=== PATIENT | male | born 1995 | race Asian ===

== ENCOUNTER 2019-02-28 12:53 | Inpatient (IN) | payer OTHER ==
[~2019-02-28] VITALS: Ht 188 cm; Wt 75.8 kg
[2019-02-28] MEDS ORDERED: oxycodone (13:02)
[2019-02-28] MEDS ORDERED: NS 1,000 ML IV SCH (13:12)
[2019-02-28] MEDS ORDERED: NS 1,000 ML IV ONE (13:15)
[2019-02-28] MEDS ORDERED: ACETYLCYSTEINE 0 MG in D5W 1,000 ML IV ONE (13:30)
[2019-02-28] MEDS ORDERED: ACETYLCYSTEINE 0 MG in D5W 250 ML IV ONE (13:30)
[2019-02-28] MEDS ORDERED: ACETYLCYSTEINE 0 MG in D5W 500 ML IV ONE (13:30)
[2019-02-28] MEDS ORDERED: ACETYLCYSTEINE 6000 MG/30 ML *IV* VIAL (J0132) As Ordered ONE ×2 (13:37→13:42)
[2019-02-28 13:38] LABS: BASO % 0.3 % (0.0-1.0); HEMATOCRIT 45.4 % (42.0-52.0); HEMOGLOBIN 15.3 g/dl (13.5-17.5); LYMPH # 0.5 10^3/uL (1.5-6.5); LYMPH % 4.9 % (24.0-44.0); MEAN CORPUSCULAR HEMOGLOBIN 30.5 pg (27.0-33.0); MEAN CORPUSCULAR HGB CONC 33.7 g/dl (32.0-36.5); MEAN CORPUSCULAR VOLUME 90.6 fl (80.0-96.0); MONO # 0.3 10^3/uL (0.0-0.8); NEUTROPHILS # 9.6 10^3/uL (1.8-7.7); NEUTROPHILS % 91.5 % (36.0-66.0); PLATELET COUNT, AUTOMATED 169 10^3/uL (150-450); RED BLOOD COUNT 5.01 10^6/uL (4.30-6.10); WHITE BLOOD COUNT 10.5 10^3/uL (4.0-10.0)
[2019-02-28] MEDS ORDERED: ACETYLCYSTEINE 11,250 MG in D5W 250 ML IV ONE (13:45)
[2019-02-28 13:51] LABS: INR 0.96; PROTHROMBIN TIME 12.9 SECONDS (12.1-14.4)
[2019-02-28 13:56] LABS: AMPHETAMINES LEVEL URINE NEGATIVE (NEGATIVE); BARBITURATES URINE NEGATIVE (NEGATIVE); BENZODIAZEPINES URINE NEGATIVE (NEGATIVE); CANNABINOIDS URINE NEGATIVE (NEGATIVE); COCAINE METABOLITE URINE NEGATIVE (NEGATIVE); METHADONE URINE NEGATIVE (NEGATIVE); OPIATES URINE POSITIVE (NEGATIVE); PHENCYCLIDINE URINE NEGATIVE (NEGATIVE)
[2019-02-28 14:06] LABS: ACETAMINOPHEN LEVEL < 2.0 UG/ML (10.0-30.0); ALBUMIN 5.1 GM/DL (3.2-5.2); ALT/SGPT 60 U/L (12-78); BILIRUBIN,DIRECT 0.3 MG/DL (0.0-0.2); BILIRUBIN,TOTAL 1.1 MG/DL (0.2-1.0); BLOOD UREA NITROGEN 14 MG/DL (7-18); CARBON DIOXIDE LEVEL 28 MEQ/L (21-32); CHLORIDE LEVEL 105 MEQ/L (98-107); CPK CREATINE PHOSPHOKINASE 242 U/L (39-308); CREATININE FOR GFR 1.31 MG/DL (0.70-1.30); ETHYL ALCOHOL (ETHANOL) < 0.003 % (0.000-0.010); GLOMERULAR FILTRATION RATE > 60.0 (>60); GLUCOSE, FASTING 103 MG/DL (70-100); POTASSIUM SERUM 3.9 MEQ/L (3.5-5.1); SALICYLATE LEVEL < 1.7 MG/DL (5.0-30.0); SODIUM LEVEL 140 MEQ/L (136-145); TOTAL PROTEIN 8.6 GM/DL (6.4-8.2)
[2019-02-28] MEDS ORDERED: diphenhydrAMINE INJ 50MG/ML VIAL (J1200) As Ordered ONE (14:55)
[2019-02-28] MEDS ORDERED: diphenhydrAMINE INJ 50MG/ML VIAL (J1200) IV STA (14:58)
[2019-02-28] MEDS ORDERED: ACETYLCYSTEINE 3,750 MG in D5W 500 ML IV ONE (18:00)
[2019-02-28 18:01] LABS: ALBUMIN 4.2 GM/DL (3.2-5.2); BILIRUBIN,DIRECT 0.3 MG/DL (0.0-0.2); TOTAL PROTEIN 6.6 GM/DL (6.4-8.2)
[2019-02-28] MEDS ORDERED: MAALOX 30 ML SUSP *UDC PO PRN (19:30)
[2019-02-28] MEDS ORDERED: hydrOXYzine 50 MG TAB PO PRN (19:30)
[2019-02-28] MEDS ORDERED: ACETAMINOPHEN TAB 650MG DOSE (2X325MG) PO PRN (19:30)
[2019-02-28] MEDS ORDERED: traZODone 50 MG TAB PO PRN (19:30)
[2019-02-28] MEDS ORDERED: MOM 30ML SUSPENSION UDC PO PRN (19:30)
[2019-02-28 23:34] VITALS: BP 132/69
[2019-03-01 06:57] VITALS: BP 113/66
--- NOTE | 2019-03-01 11:33 | ECGEPIP ---
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
--- NOTE | 2019-03-01 13:30 | HPEPDOC ---
General Date of Admission February 28, 2019 at 19:27 Attending Physician: HYACINTH WIHPPLE MD Chief Complaint The patient is a 24-year-old male admitted with a reason for visit of Unspecified Depressive Disorder. History of Present Illness Patient is a 24-year-old male, who presented to the emergency room after suicide attempt with 30 oxycodone pills. His past medical history is significant only for nicotine use. The oxycodone pills were left over from teeth surgery patient had a year ago. Reason for suicide attempt was due to his wanting a divorce. On assessment. He denies any chest pain, abdominal pain, shortness of breath, nausea. Home Medications No Active Prescriptions or Reported Meds Allergies Coded Allergies: acetylcysteine (Verified Allergy, Intermediate, Hives, 02/28/19) Past Medical History Medical History Nicotine dependence Surgical History Has not had any surgeries Family History Significant Family History: No pertinent family hx Social History Alcohol: occationally Drugs: denies A-FIB/CHADSVASC A-FIB History Current/History of A-Fib/PAF?: No Current Oral Anticoagulant The: No Review of Systems Other systems A pertinent 10 point review of systems is completed, negative except as stated in the history of presenting illness Physical Examination Other physical findings GENERAL: NAD SKIN : Warm, dry intact HEENT: Atraumatic, normocephalic, PERRL, moist mucous membrane CV: Regular rate and rhythm, S1S2, no JVD, no edema, distal pulses + and palpable RESP: CTAB, no accessory muscle use noted ABDOMEN: BS+ non distended non tender MS: no joint deformities NEURO: Alert and oriented x 3, CN2-12 grossly intact PSYCH: no anxiety or agitation, appropriate mood and affect. Vital Signs Vital Signs Date Time Temp Pulse Resp B/P (MAP) Pulse Ox O2 Delivery O2 Flow Rate FiO2 03/01/19 06:57 97.5 70 18 113/66 (82) 02/28/19 20:06 98 Room Air Laboratory Data Labs 24H Laboratory Tests 2 02/28/19 13:23: Immature Granulocyte % (Auto) 0.3, White Blood Count 10.5H, Red Blood Count 5.01, Hemoglobin 15.3, Hematocrit 45.4, Mean Corpuscular Volume 90.6, Mean Corpuscular Hemoglobin 30.5, Mean Corpuscular Hemoglobin Concent 33.7, Red Cell Distribution Width 11.5, Platelet Count 169, Neutrophils (%) (Auto) 91.5H, Lymphocytes (%) (Auto) 4.9L, Monocytes (%) (Auto) 3.0, Eosinophils (%) (Auto) 0.0, Basophils (%) (Auto) 0.3, Neutrophils # (Auto) 9.6H, Lymphocytes # (Auto) 0.5L, Monocytes # (Auto) 0.3, Eosinophils # (Auto) 0.0, Basophils # (Auto) 0.0, Nucleated Red Blood Cells % (auto) 0.0, Prothrombin Time 12.9, Prothromb Time International Ratio 0.96, Anion Gap 7L, Glomerular Filtration Rate > 60.0, Calcium Level 9.0, Aspartate Amino Transf (AST/SGOT) 26, Alanine Barker otransferase (ALT/SGPT) 60, Alkaline Phosphatase 65, Total Bilirubin 1.1H, Direct Bilirubin 0.3H, Total Creatine Kinase 242, Total Protein 8.6H, Albumin 5.1, Albumin/Globulin Ratio 1.46, Thyroid Stimulating Hormone (TSH) 1.420, Salicylates Level < 1.7L, Urine Amphetamines Screen NEGATIVE, Urine Beto odiazepines Screen NEGATIVE, Urine Opiates Screen POSITIVEH, Urine Methadone Screen NEGATIVE, Acetaminophen Level < 2.0L, Urine Barbiturates Screen NEGATIVE, Urine Phencyclidine Screen NEGATIVE, Urine Cocaine Metabolite Screen NEGATIVE, Urine Cannabinoids Screen NEGATIVE, Ethyl Alcohol Level < 0.003 02/28/19 17:14: Aspartate Amino Transf (AST/SGOT) 18, Alanine Aminotransferase (ALT/SGPT) 51, Alkaline Phosphatase 44L, Total Bilirubin 1.0, Direct Bilirubin 0.3H, Total Protein 6.6#, Albumin 4.2, Albumin/Globulin Ratio 1.75 CBC/BMP Laboratory Tests 02/28/19 13:23 Red Blood Count 5.01, Mean Corpuscular Volume 90.6, Mean Corpuscular Hemoglobin 30.5, Mean Corpuscular Hemoglobin Concent 33.7, Red Cell Distribution Width 11.5, Neutrophils (%) (Auto) 91.5 H, Lymphocytes (%) (Auto) 4.9 L, Monocytes (%) (Auto) 3.0, Eosinophils (%) (Auto) 0.0, Basophils (%) (Auto) 0.3, Neutrophils # (Auto) 9.6 H, Lymphocytes # (Auto) 0.5 L, Monocytes # (Auto) 0.3, Eosinophils # (Auto) 0.0, Basophils # (Auto) 0.0 Assessment/Plan Suicide attempt Nicotine dependence PLAN 24-year-old without any underlying medical problems, admitted post suicide attempt. Management by primary psychiatric team. At this time patient has no acute medical problems or underlying comorbidities requiring active follow-up. Medical team will sign off, please reconsult as needed. Plan / VTE VTE Prophylaxis Ordered?: No VTE Exclusion Mechanical Proph: Low Risk for VTE VIANEY GANN COMMERCIAL LENDER March 01, 2019 13:30
--- NOTE | 2019-03-01 16:11 | MHHPEPDOC ---
General Date Of Admission: February 28, 2019 Legal Status: 9.39 Chief Complaint suicide attempt after told him that she wants the divorce . History of Present Illness HISTORY OF THE PRESENT ILLNESS: Patient is a 24 -year-old , male, who, according to ED report: "Pt presented with his Lorrie, about 5 years. Pt presented by [employer]V driving after he attempted to kill himself at 2 am with about 30 Oxycodone pills that were left over a year in his medicine cabinet, after teeth surgery, per pt. Pt reports was told about his wanting divorce about 2 weeks ago by his , stated it was 3 months ago, they have been trying counseling, but does not emotionally love him any longer, "fell out of love with him," per . Pt reports "he has been realizing since Wednesday, he is hopeless and is helpless in trying to get her to be his again." Pt took about 30 pills by mouth, and then a shot of "[place]" went to sleep not wanting to wake up again, woke up in the morning by his alarm, went to PT, returned home feeling sick, woke his up, wanted her to promise not to tell anyone what he did, she drove pt to [facility] because he started to vomit., pt stated he was shocked he woke up, did not wish to, per pt. 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 [place]. Pt had one Deployment to [employer], said he had difficulties, and pt is stressed about work as well, pt denies work is an issue." Psychiatric Review of Systems Depression (2 or more weeks): feelings of excess/guilt, appetite changes ("I've been loosing weight because I've been eating healthier, not because I'm stressed or anything"), suicidal thoughts (Reza thought about killing himself around 2 a.m between 02/27/19 and Wednesday02/28/19), other (He describes himself as being "wishy washy" and when his told him she wanted the divorce, he was very rational and he talked to her, he told her that he would respect her decision but later on, when he took the pills, he was not feeling any emotions, then, when he woke up, he started feeling the pain and half an hour later he started throwing up and then, he said "I need to go to the ED") Kyra (4 or more days of): denies Psychosis: denies PTSD: denies Anxiety: situational anxiety Past Psychiatric History Previous Psychiatric Diagnosis: Denies Previous Psychiatric Admissions: Denies Suicide Attempts: First suicide attempt on 02/28/19 by OD with medications (oxycodone) Psychiatric Follow-up: Denies Psychiatric medications: Denies Past Medical History Head Injury: No Seizures: No Hospitalizations: Yes (this is the first one) Surgeries: No Family Medical/Psychiatric HX Medical Problems Alive and healthy Psychiatric Disorders: No Addiction: No Suicide Attemps/Completions: No Addiction History nicotine (sometimes), alcohol (beer, occasionally) Social History Childhood: "I guess I had a pretty normal childhood". Parents were never m arried, mother raised him with aunt and uncle's help, he has 3 brother and 1 sister. Going to school "was fine", never bullied Abuse/Trauma: Denies Current Living Situation: Lives on post with his Education: Finished HS, he started college, never finished it Employment: [employer] Social Support: , family or his leadership Legal: denies Marital: , no children. Mental Status Examination General Appearance: well groomed, appears stated age, hospital scubs/clothing Build: average Demeanor: average Eye Contact: avoidant Activity: average Behavior: cooperative Speech: clear, spontaneous, reg/rate,rhythm,volume Mood: depressed, anxious Affect: constricted, congruent Thought Process: logical/linear, concrete, depressed Thought Content (Delusions): denies SI, HI, AVH Thought Content (Other): preoccupied, guilty, ideas of reference Thought Content (Aggressive): none reported Perception (Hallucinations): none reported Perception (Other): none reported Cognition (Impairment of): none reported Cognition(Intelligence Est.): average Oriented: Awake, Alert, Oriented times three Insight: poor Judgment: Poor Psychosis: Denies Diagnoses 1. Adjustment disorder with anxious/depressed mood 2. R/O MDD, severe Assessment The patient is minimizing his symptoms although he could have been in shock for the last couple of days since his told him that she wanted the divorce. He said even when he took the pills (oxycodone that was prescribed by his dentist one year ago for a root canal treatment), he had no feelings at all, it was until he already had taken them that he started feeling pain and shortly after he started throwing up and then, he though he had to come to the ED. It could be that du to cultural issues, he didn't allow himself, being a man, to feel or it could be that been in a shock, because all of this was unexpected, he was not able to process this situation. He needs psychiatric medications, he needs therapy. he has accepted to take Zoloft, 50 mgs Po daily Initial Treatment Plan 1. Patient was admitted on a [9.39] status. 2. Complete history was obtained. 3. With patients permission, family will be contacted and database will be expanded. 4. Patients medication regimen will be reviewed and changed accordingly. 5. Patient will be provided with protected environment. 6. Patient will be treated with individual, group, and milieu therapies. 7. Patient will receive supportive psych-education. 8. Discharge planning will commence immediately. 9. Outpatient follow-up treatment will be strongly recommended. 10. The initial treatment plan will focus initially on: * Depression. * Risk for suicide. * Substance abuse. * Ineffective coping * Poor impulse control ESTIMATED LENGTH OF STAY: 5-7 DAYS. TIME SPENT COUNSELING AND COORDINATING INITIAL CARE: 50 minutes. Vital Signs Vital Signs Date Time Temp Pulse Resp B/P (MAP) Pulse Ox O2 Delivery O2 Flow Rate FiO2 03/01/19 06:57 97.5 70 18 113/66 (82) 02/28/19 20:06 98 Room Air Laboratory Data 24H Labs Laboratory Tests 2 02/28/19 17:14: Aspartate Amino Transf (AST/SGOT) 18, Alanine Aminotransferase (ALT/SGPT) 51, Alkaline Phosphatase 44L, Total Bilirubin 1.0, Direct Bilirubin 0.3H, Total Protein 6.6#, Albumin 4.2, Albumin/Globulin Ratio 1.75 Medications No Active Prescriptions or Reported Meds Allergies Coded Allergies: acetylcysteine (Verified Allergy, Intermediate, Hives, 02/28/19) MO WEBB MD March 01, 2019 15:55
[2019-03-01] MEDS: SERTRALINE HCL 50 MG TAB PO SCH (16:23)
[2019-03-01 18:00] VITALS: BP 123/60
[2019-03-02 06:24] VITALS: BP 120/67
[2019-03-02] MEDS: SERTRALINE HCL 50 MG TAB PO SCH (08:39)
[2019-03-02 18:00] VITALS: BP 140/76
--- NOTE | 2019-03-02 18:34 | MHIPNPDOC ---
[facility] Progress Note Progress Note DATE OF SERVICE: 03/02/19 HISTORY: Patient is a 24 -year-old , male, who, according to ED report: "Pt presented with his Lorrie, about 5 years. Pt presented by [employer] driving after he attempted to kill himself at 2 am with about 30 Oxycodone pills that were left over a year in his medicine cabinet, after teeth surgery, per pt. Pt reports was told about his wanting divorce about 2 weeks ago by his , stated it was 3 months ago, they have been trying counseling, but does not emotionally love him any longer, "fell out of love with him," per . Pt reports "he has been realizing since Wednesday, he is hopeless and is helpless in trying to get her to be his again." Pt took about 30 pills by mouth, and then a shot of "[place]" went to sleep not wanting to wake up again, woke up in the morning by his alarm, went to PT, returned home feeling sick, woke his up, wanted her to promise not to tell anyone what he did, she drove pt to [facility] because he started to vomit., pt stated he was shocked he woke up, did not wish to, per pt. 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 The couple [place]. Pt had one Deployment to [employer], said he had difficulties, and pt is stressed about work as well, pt denies work is an issue." VITAL SIGNS: See below. NEW TEST RESULTS: See below CURRENT MEDICATIONS: See below. MENTAL STATUS EXAMINATION: General Appearance: well groomed, appears stated age, hospital scrubs/clothing Build: average Demeanor: average Eye Contact: avoidant at times (mostly all the time) Activity: average Behavior: cooperative Speech: clear, spontaneous, reg/rate,rhythm,volume Mood: depressed, anxious (more anxious than depressed) Affect: constricted, congruent Thought Process: logical/linear,depressed, a little concrete Thought Content (Delusions): cognitive distortions Thought Content (Other): preoccupied, guilty, denies SI, denies HI, denies AV hallucinations Thought Content (Aggressive): none reported Perception (Hallucinations): none reported Perception (Other): none reported Cognition (Impairment of): none reported Cognition(Intelligence Est.): average Oriented: Awake, Alert, Oriented times three Insight: poor Judgment: Poor Psychosis: Denies Diagnoses 1. Adjustment disorder with anxious/depressed mood 2. R/O MDD, severe ASSESSMENT: The patient seems to be more receptive, today we talked about the cultural aspects that may influence a person to not seek help, not to accept or accept that they feel sad or depressed, we talked about machismo. The patient was listening, explained why it's important to go to therapy, to learn about coping skills. He reported going to groups and finding them helpful. Medications remained unchainged. MANAGEMENT PLAN: Will continue with the same treatment plan TIME SPENT: 25 minutes. Vital Signs Vital Signs Date Time Temp Pulse Resp B/P (MAP) Pulse Ox O2 Delivery O2 Flow Rate FiO2 03/02/19 06:24 98.8 82 14 120/67 (84) 02/28/19 20:06 98 Room Air Current Medications Current Medications Acetaminophen (Tylenol Tab) 650 mg Q6HP PRN PO HEADACHE or DISCOMFORT; Start 02/28/19 at 19:30 Al Hydrox/Mg Hydrox/Simethicone (Mylanta) 30 ml Q4HP PRN PO HEARTBURN/INDIGESTION; Start 02/28/19 at 19:30 Diphenhydramine HCl (Benadryl) 50 mg STAT STAT IV Last administered on 02/28/19at 14:59; Start 02/28/19 at 14:58; Stop 02/28/19 at 14:59; Status DC Home Med (Med Rec Complete!) ASDIRECTED XX ; Start 02/28/19 at 19:15; Stop 02/28/19 at 19:15; Status DC Hydroxyzine HCl (Atarax) 50 mg Q4HP PRN PO ANXIETY/AGITATION; Start 02/28/19 at 19:30 Magnesium Hydroxide (Milk Of Magnesia) 30 ml DAILYPRN PRN PO CONSTIPATION; Start 02/28/19 at 19:30 Sertraline HCl (Zoloft) 50 mg DAILY PO Last administered on 03/02/19at 08:39; Start 03/01/19 at 09:00 Sodium Chloride 1,000 ml @ 100 mls/hr Q10H IV Last administered on 02/28/19at 13:12; Start 02/28/19 at 13:12; Stop 03/01/19 at 05:27; Status DC Trazodone HCl (Desyrel) 50 mg QHSP PRN PO INSOMNIA; Start 02/28/19 at 19:30 Allergies Coded Allergies: acetylcysteine (Verified Allergy, Intermediate, Hives, 02/28/19) MO WEBB MD March 02, 2019 18:23
[2019-03-03 07:11] VITALS: BP 113/62
[2019-03-03] MEDS: SERTRALINE HCL 50 MG TAB PO SCH (08:51)
--- NOTE | 2019-03-03 17:31 | MHIPNPDOC ---
[facility] Progress Note Progress Note DATE OF SERVICE: 03/03/19 HISTORY: Patient is a 24 -year-old , male, who, according to ED report: "Pt presented with his Lorrie, about 5 years. Pt presented by [facility]V driving after he attempted to kill himself at 2 am with about 30 Oxycodone pills that were left over a year in his medicine cabinet, after teeth surgery, per pt. Pt reports was told about his wanting divorce about 2 weeks ago by his , stated it was 3 months ago, they have been trying counseling, but does not emotionally love him any longer, "fell out of love with him," per . Pt reports "he has been realizing since Wednesday, he is hopeless and is helpless in trying to get her to be his again." Pt took about 30 pills by mouth, and then a shot of "[place]" went to sleep not wanting to wake up again, woke up in the morning by his alarm, went to PT, returned home feeling sick, woke his up, wanted her to promise not to tell anyone what he did, she drove pt to [facility] because he started to vomit., pt stated he was shocked he woke up, did not wish to, per pt. 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 The couple [place] past year. Pt had one Deployment to [employer], said he had difficulties, and pt is stressed about work as well, pt denies work is an issue." VITAL SIGNS: See below. NEW TEST RESULTS: See below CURRENT MEDICATIONS: See below. MENTAL STATUS EXAMINATION: General Appearance: well groomed, appears stated age, hospital scrubs/clothing Build: average Demeanor: average Eye Contact: avoidant at times (mostly all the time) Activity: average Behavior: cooperative Speech: clear, spontaneous, reg/rate,rhythm,volume, short, brief responses Mood: Anxious Affect: constricted, congruent Thought Process: logical/linear,depressed, concrete Thought Content (Delusions): denies Thought Content (Other): preoccupied, guilty, denies SI, denies HI, denies AV hallucinations Thought Content (Aggressive): none reported Perception (Hallucinations): none reported Perception (Other): none reported Cognition (Impairment of): none reported Cognition(Intelligence Est.): average Oriented: Awake, Alert, Oriented times three Insight: poor Judgment: Poor Psychosis: Denies Diagnoses 1. Adjustment disorder with anxious/depressed mood 2. R/O MDD, severe ASSESSMENT: The patient doesn't establish eye contact with me, he looks at the wall while I talk to him. He gets visibly upset (although he denies it) when I ask him if he has suicidal ideation and I have to explain I always have to ask that question. He seems to be minimizing his symptoms, he says that he has been going to groups, he has been social in the Unit with peers and he might be improving but he has trouble accepting his emotional problems. doesn't need medication adjustments at this time MANAGEMENT PLAN: Will continue with the same treatment plan TIME SPENT: 25 minutes. Vital Signs Vital Signs Date Time Temp Pulse Resp B/P (MAP) Pulse Ox O2 Delivery O2 Flow Rate FiO2 03/03/19 07:11 97.6 71 16 113/62 (79) 02/28/19 20:06 98 Room Air Current Medications Current Medications Acetaminophen (Tylenol Tab) 650 mg Q6HP PRN PO HEADACHE or DISCOMFORT; Start 02/28/19 at 19:30 Al Hydrox/Mg Hydrox/Simethicone (Mylanta) 30 ml Q4HP PRN PO HEARTBURN/INDIGES TION; Start 02/28/19 at 19:30 Diphenhydramine HCl (Benadryl) 50 mg STAT STAT IV Last administered on 02/28/19at 14:59; Start 02/28/19 at 14:58; Stop 02/28/19 at 14:59; Status DC Home Med (Med Rec Complete!) ASDIRECTED XX ; Start 02/28/19 at 19:15; Stop 02/28/19 at 19:15; Status DC Hydroxyzine HCl (Atarax) 50 mg Q4HP PRN PO ANXIETY/AGITATION; Start 02/28/19 at 19:30 Magnesium Hydroxide (Milk Of Magnesia) 30 ml DAILYPRN PRN PO CONSTIPATION; Start 02/28/19 at 19:30 Sertraline HCl (Zoloft) 50 mg DAILY PO Last administered on 03/03/19at 08:51; Start 03/01/19 at 09:00 Sodium Chloride 1,000 ml @ 100 mls/hr Q10H IV Last administered on 02/28/19at 13:12; Start 02/28/19 at 13:12; Stop 03/01/19 at 05:27; Status DC Trazodone HCl (Desyrel) 50 mg QHSP PRN PO INSOMNIA; Start 02/28/19 at 19:30 Allergies Coded Allergies: acetylcysteine (Verified Allergy, Intermediate, Hives, 02/28/19) A-FIB/CHADSVASC A-FIB History Current/History of A-Fib/PAF?: No Current Oral Anticoagulant The: No Age/Risk Factor Scoring CHADSVASC: CHADSVASC Response (Comments) Value Age Risk Factor Age < 65 years old 0 Gender Risk Factor Male 0 Hx of CHF No 0 Hx of HTN No 0 Hx of Stroke/TIA/or VTE No 0 Hx of Diabetes No 0 Hx of Vascular Disease No 0 Total 0 Treatment Treatment ordered: NONE Reason Anticoagulant not given: Not indicated/[id number] MO WEBB MD March 03, 2019 17:16
[2019-03-03 18:40] VITALS: BP 103/56
[2019-03-04 06:42] VITALS: BP 113/55
[2019-03-04] MEDS: SERTRALINE HCL 50 MG TAB PO SCH (08:19)
--- NOTE | 2019-03-04 15:46 | MHIPNPDOC ---
[facility] Progress Note Progress Note DATE OF SERVICE: 03/04/19 HISTORY: 24-year-old male depressed with marital difficulties. VITAL SIGNS: See below. NEW TEST RESULTS: None. CURRENT MEDICATIONS: See below. MENTAL STATUS EXAMINATION: Patient is a to any 4-year old male, who is admitted for depression with marital difficulties. Speech: Is. Normal. Language skills are disturbances. Thought processes including:. No disturbances. Thought content: Appropriate. Abstract reasoning, and computation:, Able to abstract. Description of associations:. No loose association. Description of abnormal or psychotic thoughts:. No psychotic thought. Judgment: Fair. Insight: Fair. Orientation:, Fully oriented. Recent and remote memory:, Intact. Attention span and concentration: Good. Language: No abnormalities. Fund of knowledge:. Full fund. Mood: Euthymic. Affect:, Congruent. DIAGNOSES: 1. Adjustment disorder with depressed mood. 2., Marital stressors. ASSESSMENT: 24-year-old male, for 5 years with marital stressors and subsequent depression MANAGEMENT PLAN: As per team. TIME SPENT: 30 minutes. Vital Signs Vital Signs Date Time Temp Pulse Resp B/P (MAP) Pulse Ox O2 Delivery O2 Flow Rate FiO2 03/04/19 06:42 97.9 77 14 113/55 (74) 02/28/19 20:06 98 Room Air Current Medications Current Medications Acetaminophen (Tylenol Tab) 650 mg Q6HP PRN PO HEADACHE or DISCOMFORT; Start 02/28/19 at 19:30 Al Hydrox/Mg Hydrox/Simethicone (Mylanta) 30 ml Q4HP PRN PO HEARTBURN/INDIGESTION; Start 02/28/19 at 19:30 Diphenhydramine HCl (Benadryl) 50 mg STAT STAT IV Last administered on 02/28/19at 14:59; Start 02/28/19 at 14:58; Stop 02/28/19 at 14:59; Status DC Home Med (Med Rec Complete!) ASDIRECTED XX ; Start 02/28/19 at 19:15; Stop 02/28/19 at 19:15; Status DC Hydroxyzine HCl (Atarax) 50 mg Q4HP PRN PO ANXIETY/AGITATION; Start 02/28/19 at 19:30 Magnesium Hydroxide (Milk Of Magnesia) 30 ml DAILYPRN PRN PO CONSTIPATION; Start 02/28/19 at 19:30 Sertraline HCl (Zoloft) 50 mg DAILY PO Last administered on 03/04/19at 08:19; S tart 03/01/19 at 09:00 Sodium Chloride 1,000 ml @ 100 mls/hr Q10H IV Last administered on 02/28/19at 13:12; Start 02/28/19 at 13:12; Stop 03/01/19 at 05:27; Status DC Trazodone HCl (Desyrel) 50 mg QHSP PRN PO INSOMNIA; Start 02/28/19 at 19:30 Allergies Coded Allergies: acetylcysteine (Verified Allergy, Intermediate, Hives, 02/28/19) A-FIB/CHADSVASC A-FIB History Current/History of A-Fib/PAF?: No Current Oral Anticoagulant The: No Age/Risk Factor Scoring CHADSVASC: CHADSVASC Response (Comments) Value Age Risk Factor Age < 65 years old 0 Gender Risk Factor Male 0 Hx of CHF No 0 Hx of HTN No 0 Hx of Stroke/TIA/or VTE No 0 Hx of Diabetes No 0 Hx of Vascular Disease No 0 Total 0 Treatment Treatment ordered: NONE KAY MATTHEW MD March 04, 2019 15:46
[2019-03-04 18:29] VITALS: BP 138/64
[2019-03-05 06:40] VITALS: BP 116/58
[2019-03-05] MEDS: SERTRALINE HCL 50 MG TAB PO SCH (08:14)
--- NOTE | 2019-03-05 15:34 | MHIPNPDOC ---
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 VITAL SIGNS: See below. NEW TEST RESULTS: None. CURRENT MEDICATIONS: See below. MENTAL STATUS EXAMINATION: Patient is a 24-year old male, who is admitted for depression, suicidal ideation and marital difficulty. Speech: Is. Normal. Language skills are intact. Thought processes including:. Denies hallucinations, delusions, obsessions, compulsions or phobias. Thought content:. Unremarkable. Abstract reasoning, and computation: Able to abstract. Description of associations: Loose association. Description of abnormal or psychotic thoughts:. No psychotic thought. At this time. Judgment: Fair. Insight:. Fair. Orientation: Fully oriented. Recent and remote memory:, Intact. Attention span and concentration:, Intact. Language: As above. Fund of knowledge:. Full. Mood: Euthymic. Affect:, Congruent. DIAGNOSES: 1., Major depression. 2., Marital difficulties. 3., Occupational stress. ASSESSMENT:. Patient struggling with marital difficulties and occupational stress MANAGEMENT PLAN:. As per team. TIME SPENT:, 30 minutes. Vital Signs Vital Signs Date Time Temp Pulse Resp B/P (MAP) Pulse Ox O2 Delivery O2 Flow Rate FiO2 03/05/19 06:40 98.3 60 14 116/58 (77) 02/28/19 20:06 98 Room Air Current Medications Current Medications Acetaminophen (Tylenol Tab) 650 mg Q6HP PRN PO HEADACHE or DISCOMFORT; Start 02/28/19 at 19:30 Al Hydrox/Mg Hydrox/Simethicone (Mylanta) 30 ml Q4HP PRN PO HEAR TBURN/INDIGESTION; Start 02/28/19 at 19:30 Diphenhydramine HCl (Benadryl) 50 mg STAT STAT IV Last administered on 02/28/19at 14:59; Start 02/28/19 at 14:58; Stop 02/28/19 at 14:59; Status DC Home Med (Med Rec Complete!) ASDIRECTED XX ; Start 02/28/19 at 19:15; Stop 02/28/19 at 19:15; Status DC Hydroxyzine HCl (Atarax) 50 mg Q4HP PRN PO ANXIETY/AGITATION; Start 02/28/19 at 19:30 Magnesium Hydroxide (Milk Of Magnesia) 30 ml DAILYPRN PRN PO CONSTIPATION; Start 02/28/19 at 19:30 Sertraline HCl (Zoloft) 50 mg DAILY PO Last administered on 03/05/19at 08:14; Start 03/01/19 at 09:00 Sodium Chloride 1,000 ml @ 100 mls/hr Q10H IV Last administered on 02/28/19at 13:12; Start 02/28/19 at 13:12; Stop 03/01/19 at 05:27; Status DC Trazodone HCl (Desyrel) 50 mg QHSP PRN PO INSOMNIA; Start 02/28/19 at 19:30 Allergies Coded Allergies: acetylcysteine (Verified Allergy, Intermediate, Hives, 02/28/19) A-FIB/CHADSVASC A-FIB History Current/History of A-Fib/PAF?: No Current Oral Anticoagulant The: No Age/Risk Factor Scoring CHADSVASC: CHADSVASC Response (Comments) Value Age Risk Factor Age < 65 years old 0 Gender Risk Factor Male 0 Hx of CHF No 0 Hx of HTN No 0 Hx of Stroke/TIA/or VTE No 0 Hx of Diabetes No 0 Hx of Vascular Disease No 0 Total 0 Treatment Treatment ordered: NONE KAY MATTHEW MD March 05, 2019 15:34
[2019-03-05 18:00] VITALS: BP 104/58
[2019-03-06 06:40] VITALS: BP 118/58
[2019-03-06] MEDS: SERTRALINE HCL 50 MG TAB PO SCH (08:15)
[2019-03-06] MEDS ORDERED: HYDRO50TAB PO (09:39)
[2019-03-06] MEDS ORDERED: SERT-155 PO (09:39)
--- NOTE | 2019-03-07 16:46 | MHDSPDOC ---
[facility] Discharge Summary Discharge Summary DATE OF ADMISSION: February 28, 2019 at 19:27 DATE OF DISCHARGE: March 06, 2019 at 10:30 DISCHARGE DIAGNOSES: 1. other specified depressive disorder 2. Other specified anxiety disorder 3. R/O Adjustment disorders with anxious/depressed mood REASON FOR ADMISSION: Chief Complaint suicide attempt after told him that she wants the divorce . History of Present Illness HISTORY OF THE PRESENT ILLNESS: Patient is a 24 -year-old , male, who, according to ED report: "Pt presented with his [place], about 5 years. Pt presented by [employer] driving after he attempted to kill himself at 2 am with about 30 Oxycodone pills that were left over a year in his medicine cabinet, after teeth surgery, per pt. Pt reports was told about his wanting divorce about 2 weeks ago by his , stated it was 3 months ago, they have been trying counseling, but does not emotionally love him any longer, "fell out of love with him," per . Pt reports "he has been realizing since Wednesday, he is hopeless and is helpless in trying to get her to be his again." Pt took about 30 pills by mouth, and then a shot of "[place]" went to sleep not wanting to wake up again, woke up in the morning by his alarm, went to PT, returned home feeling sick, woke his up, wanted her to promise not to tell anyone what he did, she drove pt to [facility] because he started to vomit., pt stated he was shocked he woke up, did not wish to, per pt. 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 [place]. Pt had one Deployment to [employer], said he had difficulties, and pt is stressed about work as well, pt denies work is an issue." CONSULTANTS INVOLVED: None TREATMENT AND PROGRESS ON THE UNIT : Upon initial evaluation, the patient presented as being guarded, did not establish eye contact, his mood was anxious/sad and his affect was constricted. He never looked at me in the eye. I talked to him about the importance of talking about his feelings, not allow them to build up inside until these type of situation, like that one that brought him to the hospital, happens. spoke with him about how culture influences the way we express our feelings since his mother is from the [facility] and he seemed not to understand why I was talking about this but I explained that in certain cultures, it is not well seen to talk about emotions especially in men and I explained that maybe thee believes had been passed on from generation to generation in his mother's family, plus being in the [employer], where people are not supposed to be weak (and mostly all the time they think that being depressed is being weak) could have been factors that influenced him about the way he felt and why he never talked about this. He accepted taking medications and this commercial real estate underwriter started him on Sertraline 50 mags Po daily and Hydroxyzine 50 mgs Q4HP for anxiety and agitation. He had a good response to medications and he did not report, not did we observe side effects to the medications HOSPITAL COURSE: As above DISCHARGE ASSESSMENT: MENTAL STATUS EXAMINATION ON DISCHARGE: General Appearance: well groomed, appears stated age, hospital scrubs/clothing Build: average Demeanor: average Eye Contact: avoidant Activity: average Behavior: cooperative Speech: clear, spontaneous, reg/rate,rhythm,volume Mood: less anxious, less depressed Affect: constricted, congruent Thought Process: logical/linear, concrete Thought Content (Delusions): denies SI, HI, AVH Thought Content (Other): preoccupied, guilty, ideas of reference Thought Content (Aggressive): none reported Perception (Hallucinations): none reported Perception (Other): none reported Cognition (Impairment of): none reported Cognition(Intelligence Est.): average Oriented: Awake, Alert, Oriented times three Insight: poor Judgment: Poor Psychosis: Denies MEDICATIONS ON DISCHARGE: Scheduled Sertraline HCl (Sertraline HCl) 50 Mg Tablet, 50 MG PO DAILY for depression, #7 Scheduled PRN Hydroxyzine HCl (Hydroxyzine HCl) 50 Mg Tablet, 50 MG PO Q4HP PRN for ANXIETY/AGITATION, #42 PLAN/FOLLOWUP ARRANGEMENTS: Follow Up Care Education Label * Smoking Cessation * [facility] * Additional information see attached form Follow Up Care Education Label * Mental Health Appt 1 * Mental Health [facility] * Additional information 3D [facility]/3BCT HEAP,KURT [id number]@1000 FTR/60 PENDING Arrive 15 min early IOP/DRUM1 NERISSA PERAZA [id number]@0930 GRP/120 PENDING Arrive 15 min early 3D BCT EB CLINIC/3BCT HEAP,KURT [id number]@1000 FTR/60 PENDING Arrive 15 min early 3D BCT EB CLINIC/3BCT MAHAD,ARGENIS [id number]@0900 SPEC/90 PENDING Arrive 15 min early 3D BCT EB CLINIC/3BCT SELLERS,ANDRA [id number]@0800 FTR/60 PENDING Arrive 15 min early 3D BCT [facility]/3BCT SELLERS,ANDRA [id number]@1100 FTR/60 PENDING Arrive 15 min early 3D BCT EB CLINIC/3BCT SELLERS,ANDRA [id number]@1000 FTR/60 PENDING Arrive 15 min early 3D BCT [facility] CLINIC/3BCT SELLERS,ANDRA [id number]@1100 FTR/60 PENDING Arrive 15 min early 3D BCT EB CLINIC/3BCT SELLERS,ANDRA [id number]@1100 FTR/60 PENDING Arrive 15 min early Follow Up Care Education Label * Medical * Medical Follow Up [facility] * Established With This Provider Yes * Therapist [facility] * Date March 14, 2019 * Time 08:30 * The amount of time spent in the coordination of care for this patient was approximately 30 minutes. Vital Signs/I&Os Vital Signs Date Time Temp Pulse Resp B/P (MAP) Pulse Ox O2 Delivery O2 Flow Rate FiO2 03/06/19 06:40 97.0 57 14 118/58 (78) Medications Scheduled Sertraline HCl (Sertraline HCl) 50 Mg Tablet, 50 MG PO DAILY for depression, #7 Scheduled PRN Hydroxyzine HCl (Hydroxyzine HCl) 50 Mg Tablet, 50 MG PO Q4HP PRN for ANXIETY/AGITATION, #42 Allergies Coded Allergies: acetylcysteine (Verified Allergy, Intermediate, Hives, 02/28/19) MO WEBB MD March 07, 2019 16:42
== END 2019-03-06 10:30 | disposition home or self-care (01) | DRG 881 ==
LOC: M ED 12:53 → M ED INP 19:27 → M PSY 23:28
PROVIDERS: ADMIT Psychiatry & Neurology Psychiatry; ATTEND Psychiatry & Neurology Psychiatry
DX: F32.9 Major depressive disorder, single episode, unspecified (principal); F41.9 Anxiety disorder, unspecified; F43.23 Adjustment disorder with mixed anxiety and depressed mood; Z63.5 Disruption of family by separation and divorce; Z88.8 Allergy status to other drugs, medicaments and biological substances; F17.200 Nicotine dependence, unspecified, uncomplicated